=== PATIENT | male | born 1960 | race Two or more races ===

== ENCOUNTER 2024-10-07 15:10 | Outpatient (AMB) | payer OTHER, SELFPAY ==
--- NOTE | 2024-10-07 15:19 | A.OFFVIS_ITS ---
Intake Visit Reasons: elevated PSA Intake Note: Patient is present for ELEVATED PSA Urology Medication:NONE Antibiotic Allergy:NONE Blood Thinner:NONE [employer] Service Helper Required: No Allergies No Known Allergies Allergy (Verified 10/07/24 15:20) HPI Comments Details: Chance is a pleasant Serbian-speaking male. He is a patient of Dr. Castillo. He seen for the following urologic conditions - elevated PSA Accompanied by his sister Serbian translation provided in office by qualified medical specialist Trial finasteride for 4 months with repeat free and total PSA PCPT risk calculator indicates 8% probability of clinically significant prostate cancer Elevated PSA Slowly rising over a number of years PSA - 04/22 3.5, 05/24 4.7, 01/21 5.4, 09/22 6.0, 05/26 6.5 Per documentation MRI performed at [facility] Probable PI-RADS 3 - no description of prostate size Given uncertainty that would revolve around biopsy diagnosis and less than 10% probability of clinically significant prostate cancer recommend initiate finasteride to shrink prostate and modify PSA If PSA fails to respond to finasteride would recommend targeted MRI ultrasound fusion biopsy Review of Systems Const Denies chills and Denies fever(s) Card Reports no additional complaints and Denies syncope Resp Denies cough GI Denies abdominal pain and Denies heartburn Reports as per HPI and Denies change in libido Neuro Denies syncope Psych Denies change in libido Endo Denies change in libido Physical Exam Const General: cooperative, healthy appearing, comfortable and no acute distress Orientation/consciousness: patient oriented x3 HEENT Face and sinus: Yes normal facial exam Mouth: moist mucous membranes Neck Neck: Yes normal visual inspection, Yes full ROM and Yes trachea midline Chest Chest palpation & inspection: normal inspection of the chest Resp Effort & Inspection: normal respiratory effort, able to speak in complete sentences and no respiratory distress GI Inspection: Yes normal to inspection Back/Spine/Pelvis Cervical Spine: normal cervical lordosis Thoracic/Lumbar Spine: thoracic and lumbar spine normal to inspection Skin General skin exam: no rashes or lesions noted Neuro General: patient oriented x3, gait normal, tone normal and moves all extremities Extrem General: Yes normal to inspection and Yes capillary refill normal Results AMB Urinalysis, Automated UA Leukoctes 0 Az/uL Last Edit by FIDENCIO Gonzalez on 10/07/24 15:57 UA Nitrite Negative Last Edit by FIDENCIO Gonzalez on 10/07/24 15:57 UA Urobilinogen 0.2 mg/dL Last Edit by FIDENCIO Gonzalez on 10/07/24 15:5 7 UA Protein 15 mg/dL Last Edit by FIDENCIO Gonzalez on 10/07/24 15:57 UA pH 6.0 Last Edit by FIDENCIO Gonzalez on 10/07/24 15:57 UA Blood 0 Juarez/uL Last Edit by FIDENCIO Gonzalez on 10/07/24 15:57 UA Specific [place] 1.025 Last Edit by FIDENCIO Gonzalez on 10/07/24 15: 57 UA Ketone Negative Last Edit by FIDENCIO Gonzalez on 10/07/24 15:57 UA Bilirubin 0 mg/dL Last Edit by FIDENCIO Gonzalez on 10/07/24 15:57 UA Glucose 0 mg/dL Last Edit by FIDENCIO Gonzalez on 10/07/24 15:57 Assessment & Plan Assessment & Plan (1) Elevated PSA: Code(s): R97.20 - Elevated prostate specific antigen [PSA] Category: Medical Plan Trial finasteride Four month follow-up PSA Orders: Orders PSA,Total (Free>4and<10) 4 Months R97.20 - Elevated prostate specific antigen [PSA] AMB Urinalysis Automated Today Z13.9 - Encounter for screening, unspecified US bladder 4 Months R97.20 - Elevated prostate specific antigen [PSA] Medications: New finasteride 5 mg PO DAILY 90 tabs 1RF 90 days Patient Instructions: This note is constructed using voice recognition software. While every effort has been made to ensure accuracy mica laminating machine feeder errors may have been included. Imaging studies, laboratory and physical exam results were discussed and reviewed in detail. No major barriers to patient understanding were identified. An opportunity to ask questions regarding the treatment plan was provided. All questions were answered. The patient expressed understanding and agreement with the above treatment plan. The patient is aware they should contact our office by phone for worsening of their current condition or the appearance of new urologic symptoms. Compliance is encouraged with any medications and followup testing that is ordered. It is a privilege to participate in the urologic care of your patient. If you have any questions or concerns regarding treatment for the above conditions, or other urologic issues, please do not hesitate to contact me. The office telephone contact is [phone]. Sincerely, Dr Artur Nevarez MD, [facility] - Urology Compassionate Specialist Care for the Genitourinary System Coding Level of Care Code New Pt Level 4 (53962) Diagnoses Elevated PSA R97.20
--- OUTSIDE RECORDS SUMMARY | 2024-10-07 15:28 | XMS_ITS | Clinical Summary ---
Author Organization [address] Address [address] [place] [phone] Phone Care Team Providers Care End Worker Name Role Phone Demetrius Castillo MD Primary Care Provider [phone] Allergies No known active allergies Medications oxyCODONE (ROXICODONE) 5 mg immediate release tablet Take 1 tablet (5 mg total) by mouth every 6 (six) hours if needed for severe pain. Max Daily Amount: 20 mg 12 tablet Active Additional Information Patient not taking.Reported on 07/06/2024 acetaminophen (TYLENOL) 500 mg tablet Take 2 tablets (1,000 mg total) by mouth every 8 (eight) hours. 30 tablet Active Additional Information Patient not taking.Reported on 07/06/2024 Active Problems Problem Noted Date Diagnosed Date Unilateral inguinal hernia without obstruction o r gangrene 06/22/2024 Encounters Date Type Department Care Team Description 10/05/2024 11:00 AM EDT Office Visit General Surgery - [place] [address] [place] [address] Robbie Nunez MD History of robot-assisted repair of right inguinal hernia (Primary Dx) from Last 3 Months Surgical History Surgery Date Site/Laterality Comments OTHER SURGICAL HISTORY Left BULLET REMOVED IN P.R. FOREIGN BODY REMOVAL COLONOSCOPY Medical History Medical History Date Comments Shortness of breath Inguinal hernia Joint pain Social History Tobacco Use Types Packs/Day Years Used Date Smoking Tobacco: Some Days Cigarettes Smokeless Tobacco: Never Alcohol Use Standard Drinks/Week Comments Not Currently 0 (1 standard drink = 0.6 oz pur e alcohol) Interpersonal Safety Answer Date Record ed Physical Abuse 06/25/2024 Verbal Abuse 06/25/2024 Sex and Gender Information Value Date Recorded Sex Assigned at Male 06/25/2024 7:37 AM EDT Legal Sex Male 2:17 AM EST Gender Identity Male 06/25/2024 7:37 AM EDT Sexual Orientation Straight 06/25/2024 7: 37 AM EDT Obstetrics History Last Filed Vital Signs Vital Sign Reading Time Taken Comments Blood Pressure 142/81 10/05/2024 9:15 AM EDT Pulse 94 10/05/2024 9:15 AM EDT Temperature 37 C (98.6 F) 06/25/2024 1:40 PM EDT Respiratory Rate 16 06/25/2024 1:32 PM EDT Oxygen Saturation 97% 06/25/2024 1:32 PM EDT Inhaled Oxygen Concentration - - Weight 92.7 kg (204 lb 6.4 oz) 10/05/2024 9:15 A M EDT Height 172.7 cm (5' 8 ) 10/05/2024 9:15 AM EDT Body Mass Index 31.08 10/05/2024 9:15 AM EDT Plan of Treatment Health Maintenance Due Date Last Done Comments Cholesterol Screening (Lipid Panel) 03/04/2022 Colorectal Cancer Screening: Colonoscopy 03/04/2022 Depression Screening 03/04/2022 HIV Screening 03/04/2022 Hepatitis C Screening 03/04/2022 Medicare Annual Wellness Visit 03/04/2022 Social Influencers of Health Screening 03/04/2022 Pneumococcal Vaccine: 50+ Years (2 of 2 - PCV) 10/03/2022 10/03/2021 Zoster Vaccines (2 of 2) 07/05/2023 05/10/2023 COVID-19 Vaccine (3 - 2023-2 5 season) 2023 12/24/2020, 12/03/2020 Influenza Vaccine (#1) 2024 , 02/16/2022 DTaP,Tdap,and Td Vaccines (2 - Td or Tdap) 10/04/2031 10/03/2021 RSV Immunization Adult Patients (1 - 1-dose 75+ series) 2037 HIB Vaccines Aged Out No longer eligi ble based on patient's age to complete this topic HPV Vaccines Aged Out No longer eligi ble based on patient's age to complete this topic Hepatitis A Vaccines Aged Out No long er eligible based on patient's age to complete this topic Hepatitis B Vaccines Aged Out No long er eligible based on patient's age to complete this topic IPV Vaccines Aged Out No longer eligi ble based on patient's age to complete this topic MMR Vaccines Aged Out No longer eligi ble based on patient's age to complete this topic Meningococcal ACWY Vaccine Aged Out N o longer eligible based on patient's age to complete this topic Meningococcal B Vaccine Aged Out No l onger eligible based on patient's age to complete this topic RSV Immunization Patients Under 20 months Aged Out No longer eligible b ased on patient's age to complete this topic Varicella Vaccines Aged Out No longer eligible based on patient's age to complete this topic Medical Devices Implanted Type Area Return Agent Device Identifier Shelf Expiration Date Model / Serial / Lot Mesh 3dmax Lght Lg 4.1x6.2 R 4.1x6.2in - Sna - [id number] Implanted:Qty: 1 on 06/25/2024 by Robbie Nunez MD at [facility] Surgical Mesh Sling Implants Right: Inguinal CR BARD - [employer] DIV [id number] 12/27/2028 [id number] / NA / [id number] Additional Health Concerns Infection Onset Date Last Indicated Parainfluenza Virus 03/30/2024 03/30/2024 Insurance [place]ID [place] Member Subscriber Plan / Payer (Ef fective 2024-Present) Name:DELMAR QUINTERO Relation to Subscriber:Self Name:Delmar Quintero Payer ID:[id number] Group ID:Not on file Type:Not on file Address: [facility] ATTN:[employer] [address] [place] [address] [employer] MEDICARE Advance Directives * Full Code - Default (Latest Code Status on File) Date Activated Date Inactivated Comments 06/25/2024 8:01 AM 06/25/2024 4:52 PM This is orde r is used when code status has not been discussed with the patient, or code status is otherwise unknown/unconfirmed To update the patient's code status, place a code status order. Do not modify or discontinue any currently active code status orders. Care Teams End Worker Relationship Specialty Start Date End Date Demetrius Castillo MD 11 [facility] [place] PCP - General Internal Medicine 06/22/24
--- OUTSIDE RECORDS SUMMARY | 2024-10-07 15:28 | XMS_ITS | Data Portability ---
Author Organization [place] - [facility], Allergy Address [address] [address] Care Team Providers Care Software Test Technician Name Role Phone [facility] Primary Car e Provider Assessment Encounter Date Assessment Date Assessment LastModified by Organization Details LastModified Time 02/19/2024 02/19/2024 The left ear [email or web address] Not available 1 04/20/2023 15:56:01 Plan of Treatment Reminders Order Date Submit Date Provider Last Modified By Organization Details Last Modified Time Details Appointments None record ed. Lab None record ed. Referral None record ed. Procedures None record ed. Surgeries None record ed. Imaging None record ed. Medication Orders None record ed. Patient TargetsNo targets recorded. Patient InstructionsNo instructions recorded. Reason for Referral None Reported. Problems Name Problem SNOMED Code Status Onset Date Resolution Date Notes Provider Name and Address Organization Details Recorded Time Foreign body in left ear [id number] 0 Active 2023 CHERI REILLY MD [address], [phone], [place] - [facility] 4 15:56:09 Problem Notes None recorded. Procedures Surgical History Date Name Laterality Status Provider Name and Address Organization Details Recorded Time Removal of foreign body from ear canal completed CHERI REILLY MD [address] [place] [address], [phone], [facility] 02/19/2024 15:55:56 Imaging Results None recorded. Procedure Notes None recorded. Medical Equipment None Reported. Allergies No known drug allergies Medications Name Sig Start Date Stop Date Status Note LastModified by Organization Details LastModified Time ibuprofen 800 mg tablet 02/18 completed Not Available Not Available Not Available amoxicillin 875 mg tablet TAKE 1 TABLET BY MOUTH EVERY 12 HOURS FOR 7 DAYS 02/18 completed Not Available Not Available Not Available oseltamivir 75 mg capsule TAKE 1 CAPSULE BY MOUTH TWICE DAILY FOR 5 DAYS 02/18 completed Not Available Not Available Not Available azelastine 137 mcg (0.1 %) nasal spray USE 2 SPRAYS IN EACH NOSTRIL TWICE DAILY FOR 10 DAYS 02/18 completed Not Available Not Available Not Available Vitals None Recorded Social History Question Answer Notes LastModified by [employer] Details LastModified Time Tobacco Smoking Status Current Every Day Smoker Bonnie oneill [place] - [facility] 02/19/2024 15:39:18 Which Illicit Or Recreational Drugs Have You Used? Marijuana [email or web address] Information not available 02/19/2024 Sex: Unknown Functional Status Question Answer Note LastModified by Organizat HowDo Details LastModified Time Do you use any illicit or recreational drugs? Yes [email or web address] Information not available 02/19/2024 Mental Status None recorded. Family History Nothing Reported. Medical History No medical history recorded. Past Encounters Encounter ID Performer Location Encounter Start Date Encounter Closed Date Diagnosis/Indication Diagnosis SNOMED-CT Code Diagnosis ICD10 Code Diagnosis Note [id number] CHERI REILLY MD [facility] [address] [phone] 02/19/2024 15:24:52 02/19/2024 16:01:14 Foreign body in left ear [id number] T16.2XXA Left ear was occluded by a deeply impacted cottonball which was able to remove today under the binocular microscope . No signs of acute or chronic inflammati on. Tympanic membrane and middle ear space appear normal. Patient noted immediate improvemen t of his hearing and resolution of the blockage sensation. Patient did not want to proceed with further audiometri c testing due to resolution of symptoms. Physical examinatio n revealed signs of excessive Q-tip use today. Today we spent some time talking about the fact that cerumen is a natural antibiotic , antifungal , waterproof er, and moisturize r of the delicate external auditory canal skin. The use of Q-tips strips away this natural protection and makes the ear canal skin more likely to become itchy, irritated or become infected. There is also the risk of trauma to the tympanic membranes as well. We discussed proper aural hygiene techniques to maintain the health of the external ears. Patient may follow-up as needed Health Concerns Section Related Observation LastModified by Organization Detai ls LastModified Time None Recorded Concern Status LastModified by Organization Details LastModified Time None Recorded Advance Directives Directive None Recorded Payers Insurance Date Sequence Insurance Name Policy Number Policy Vo Covered Member ID Vo Member ID Guarantor Name 02/19/2024 1 [facility] (MEDICARE REPLACEMENT/A DVANTAGE - HMO) [facility] Chance Valles [id number] Chance Valles 02/19/2024 2 [place] [facility] Chance Valles [id number] Chance Valles Notes Date Note Type Note Provider Name and Address Organization Details Recorded Time 02/19/2024 text/html 63-year-old male who presented to his primary care physician about 1 month ago with left-sided ear blockage. He was noted to have obstruction of the left ear canal. Attempts at flushing were unsuccessful. He tried flushing the ear at home without success. He continues to have left-sided ear blockage without pain, bleeding or discharge. Today's visit carried out using cataloging assistant. Patient uses Q-tips on a regular basis. CHERI REILLY MD [address] [place] [address], [phone], [facility] - [facility] 02/19/2024 15:57:26
== END 2024-10-07 16:02 | disposition home or self-care (01) ==
LOC: HO.HUSH 15:11
PROVIDERS: PCP Internal Medicine; Visit Provider Urology
DX: Z13.9 Encounter for screening, unspecified (principal); R97.20 Elevated prostate specific antigen [PSA]
CPT/HCPCS: 99204

== ENCOUNTER → 2024-10-07 15:10 | Outpatient (BNVA) | payer OTHER, SELFPAY | PROVIDERS: PCP Internal Medicine; Visit Provider Urology | DX: R97.20 Elevated prostate specific antigen [PSA] (principal) | CPT/HCPCS: 81003 ==

== ENCOUNTER 2025-02-08 08:12 | Outpatient (REF) | payer OTHER, SELFPAY ==
--- OUTSIDE RECORDS SUMMARY | 2024-09-15 11:20 | XMS_ITS ---
Author Organization [facility] Address [address] [place] [phone] Care Team Providers Care Drum Puller Name Role Phone Demetrius Castillo Primary Care [...] Encounters Encounter Location Date Provider Diagnosis [facility] [address] [place] [address] [facility] [place] [phone] 09/15/2024 Demetrius Castillo Plan Of Treatment Next Appt Details Provider Name:Adryan [facility], 02/16/2025 10:30:00 AM, [address] [place] [address], [phone], Provider Name:Demetrius Castillo, 08/03/2025 02:20:00 PM, [address] [place] [address], [phone], Progress Notes * Steven QUINTEROOB:1960 ( 64 yo M)Acc No.[id number]:09/15/2024 Progress Notes Patient: Chance MORSE Provider: Nayla Castillo MD :1960 A ge:64 Y S ex:Male Date:09/15/2024 Address:[address] [place] [address], [place] [address] Subjective: * Chief Complaints: * 1 . [...] Electronic signature of Andgladys Castillo MD on 02/08/2025 at 08:36 AM EST Sign off status: Pending * Provider: Nayla Castillo MD Date: 0 09/15/2024 Generated for Harriet howell/Ulises/eTraizasmitting on: 1 04/10/2024 08:36 AM EST
--- OUTSIDE RECORDS SUMMARY | 2024-12-12 16:00 | XMS_ITS ---
Author Organization [facility] Address [address] [place] [phone] Care Team Providers Care Historical Society Director Name Role Phone Jonathan Demetrius Primary Care [...] review and pick correct strength-formulat ion from CDP options. If intended option is not shown, discontinue and re-order from Quick Search* 05/11/2023 Not-Taking Finasteride 5 MG 1 tab(s) orally once a day Active Azelastine HCl 137 MCG/SPRAY 2 spray(s) intranasally 2 times a day for 10 days Not-Taking Social History Sex Assigned At : Social History Observation Description Sex Assigned At Male Encounters Encounter Location Date Provider Diagnosis [address] [address] 12/12/2024 Provider Migration Plan Of Treatment Next Appt Details Provider Name:[facility], 02/16/2025 10:30:00 AM, [address] [place] [address], [phone], Provider Name:Demetrius Castillo, 08/03/2025 02:20:00 PM, [address] [place] [address], [phone], Progress Notes * Steven QUINTEROOB:1960 ( 64 yo M)Acc No.[id number]:12/12/2024 Patient: Chance MORSE Provider: :1960 A ge:64 Y S ex:Male Date:12/12/2024 Address:[address] [place] [address] Pcp:Demetrius Castillo Subjective: * Chief Complaints: * [...] *Please review and pick correct strength-formulation from [facility] options. If intended option is not shown, discontinue and re-order from Quick Search*, Not-Taking/PRN Azelastine HCl 137 MCG/SPRAY Solution 2 spray(s) intranasally 2 times a day Objective: * Vitals: Assessment: Plan: * Treatment: * Images: Billing Information: * Visit Code: * Procedure Codes: * Electronic signature of Prov ider Migration on 02/08/2025 at 08:35 AM EST Sign off status: Pending * Provider: Date: 0 12/12/2024 Generated for Harriet howell/Ulises/Lyubov on: 04/10/2024 08:35 AM EST
--- OUTSIDE RECORDS SUMMARY | 2025-01-15 09:30 | XMS_ITS ---
Author Organization [facility] Address [address] [place] [phone] Care Team Providers Care Sky Cap Name Role Phone Demetrius Castillo Primary Care Provider [phone] [facility] Erica Unavailable [phone] REASON FOR VISIT Office; Received a bill from a office Social History Sex Assigned At : Social History Observation Description Sex Assigned At Male Encounters Encounter Location Date Provider Diagnosis [address] [address] 01/15/2025 [facility] Plan Of Treatment Next Appt Details Provider Name:[facility], 02/16/2025 10:30:00 AM, [address] [place] [address], [phone], Provider Name:Demetrius Castillo, 08/03/2025 02:20:00 PM, [address] [place] [address], [phone], Progress Notes * Steven QUINTEROOB:1960 ( 64 yo M)Acc No.[id number]:01/15/2025 Patient: Amelia Chance LARIOS Provider: Jermaine HORTON [facility] :1960 A ge:64 Y S ex:Male Date:01/15/2025 Address:[address] [place] [address] Pcp:Demetrius Castillo Subjective: * Chief Complaints: * 1 . Office; Received a bill from a office. * Medical History: Objective: Assessment: Plan: * Images: Billing Information: Care Plan Details* * Electronic signature of [facility] on 02/08/2025 at 08:35 AM EST Sign off status: Pending * Provider: Jermaine HORTON [facility] Date: 1 Generated for Harriet howell/Ulises/Lyubov on: 04/10/2024 08:35 AM EST
--- OUTSIDE RECORDS SUMMARY | 2025-02-08 08:36 | XMS_ITS | Encounter Summary ---
Author Organization [facility] Address [address] [place] [address] Care Team Providers Care Corporate Affairs Manager Name Role Phone Demetrius Castillo MD Primary Care Provider [phone] Encounter Details Date Type Department Care Team (Late st Contact Info) Description 05/08/2024 Lab Requisition [facility] [address] [facility] [place] [address] Demetrius Castillo MD [address] [place] [address] Elevated prostate specific antigen (PSA) Social History Tobacco Use Types Packs/Day Years Used Date Smoking Tobacco: Never Assessed Sex and Gender Information Value Date Recorded Sex Assigned at Male 06/25/2024 7:37 AM EDT Legal Sex Male 2:17 AM EST Gender Identity Male 06/25/2024 7:37 AM EDT Sexual Orientation Straight 06/25/2024 7: 37 AM EDT documented as of this encounter Plan of Treatment Not on file documented as of this encounter Procedures Procedure Name Priority Date/Time Associated Diagnosis Comments PROSTATE SPECIFIC ANTIGEN DIAGNOSTIC Routine 05/08/2024 10:32 AM EST Elevated prostate specific antigen (PSA) documented in this encounter Results * (ABNORMAL) Prostate specific antigen diagnostic (05/08/2024 10:32 AM EST) PSA 6.45(H) 0.00 - 4.00 ng/mL LAB CHEMISTRY METHOD 05/08/2024 5:13 PM EST [facility] ([facility] Blood Venous blood specimen / Unknown 05/08/2024 10:32 AM EST 05/08/2024 4:46 PM EST Narrative [facility] ([facility] - 05/08/2024 5:13 PM EST The Siemens Advia Centaur Chemiluminescent Immunoassay is used. Results obtained with different assay methods or kits cannot be used interchangeably. Results cannot be interpreted as absolute evidence of the presence or absence of malignant disease. us Demetrius Castillo MD LAB BLOOD ORDERABLES Final Re sult [facility] [address] [place] [address], documented in this encounter Visit Diagnoses Diagnosis Elevated prostate specific antigen (PSA) documented in this encounter Additional Health Concerns Infection Onset Date Last Indicated Resolved Time Parainfluenza Virus 03/30/2024 03/30/2024 documented as of this encounter Care Teams Corporate Affairs Manager Relationship Specialty Start Date End Date Demetrius Castillo MD [address] [place] [address] PCP - General Internal Medicine 06/22/24 documented as of this encounter
--- OUTSIDE RECORDS SUMMARY | 2025-02-08 08:36 | XMS_ITS | Patient Health Record ---
Author Organization [facility] Address [address] [place] [address] Care Team Providers Care Order Caller Name Role Phone Demetrius Castillo Primary Care Provider Dainelle Field Unavailable [phone] HindsJoaquínJosie Unavailable [phone] [facility], [facility] Unavailable [phone] Conchis Sánchez Unavailable [phone] Migration, Provider Unavailable Unavailable Allergies No Known Allergies Results Component Value Reference Range Notes Rapid Strep OSOM A Reviewed date:03/30/2024 10:21:06 AM Interpretation:Negative Performing Lab: Notes/Report: Negative COVID-19 Reviewed date:03/30/2024 10:21:58 AM Interpretation:Negative Performing Lab: Notes/Report: Negative RESP SYNCYTIAL VIRUS (RSV) P CR Reviewed date:03/30/2024 10:23:30 AM Interpretation:Negative Performing Lab: Notes/Report: Negative INFLUENZA A/B Reviewed date:03/30/2024 10:24:11 AM Interpretation:Negative Performing Lab: Notes/Report: Negative RESPIRATORY VIRUS PANEL [facility] ST[facility] Reviewed date:04/03/2024 11:40:26 AM Interpretation:Parainfluenza Performing Lab: Notes/Report: Testing was performed using the Axeda Respiratory Pathogen PCR Assay. All results must be correlated with the clinical findings. Results should not be used as the sole basis for diagnosis. False Negative results may occur from the presence of sequence variants in the region targeted by the assay or the presence of inhibitors. Results may be affected by concurrent antiviral/antimicrobial therapy or levels of organisms that are below the limit of detection. Adenovirus Detection by PCR Not Detected Not Detected Influenza A PCR Not Detected Not Detected Influenza B PCR Not Detected Not Detected Coronavirus 229E Not Detected Not Detected Coronavirus HKU1 Not Detected Not Detected Coronavirus OC43 Not Detected Not Detected Coronavirus NL63 Not Detected Not Detected Parainfluenza Virus 1 Not Detected Not Detected Parainfluenza Virus 2 Not Detected Not Detected Parainfluenza Virus 3 Not Detected Not Detected Parainfluenza Virus 4 Detected Not Detected RSV PCR Not Detected Not Detected Human Metapneumovirus A and B Not Detected Not Detecte d Rhinovirus/Enterovirus Not Detected Not Detected Bordetella pertussis Not Detected Not Detected Bordetella parapertussis Not Detected Not Detected Mycoplasma pneumo by PCR Not Detected Not Detected Chlamydia pneumoniae Not Detected Not Detected SARS COV-2 Not Detected Not Detected MR Pelvis W WO Reviewed date:2024 02:14:58 PM Interpretation:Abnormal Performing Lab: Notes/Report: Abnormal PROSTATE SPECIFIC ANTIGEN DI AGNOSTIC Reviewed date:05/10/2024 11:56:12 AM Interpretation:6.45 Performing Lab: Notes/Report: The Siemens Advia Centaur Chemiluminescent Immunoassay is used. Results obtained with different assay methods or kits cannot be used interchangeably. Results cannot be interpreted as absolute evidence of the presence or absence of malignant disease. PSA 6.45 0.00-4.00 ng/mL Reason For Referral Reason Unusual looking spac e occupying lesion in left ear canal causing blocked feeling and noit responding to drops and flush; [facility] will call him [facility] Referral Organization [facility] Referring Provider First Name Demetrius Referring Provider Last Name Jonathan Referring Provider Speciality Internal M edicine Referred Provider [facility] Referred Provider Specialty Otology, Lar yngology, Rhinology General Notes Silvia Zaldivar 11:39:52 AM >Notes faxed to [phone] Katelyn 02/19/2024 04:07:04 PM > pt seen today note obtained and put into providers folder to be reviewed Referral Priority Routine Referral Appointment Date 02/19/2024 Reason [facility], [address] [facility] [address] P: [phone] F: [phone] right inguinal hernia - grapefruit size Diagnosis 1 Unilateral inguinal hernia, without obstruction or gangrene, not specified as recurrent (K40.90) Referral Organization [facility] Referring Provider First Name Demetrius Referring Provider Last Name Jonathan Referring Provider Speciality Internal M edicine Referred Provider Specialty Surgery General Notes Lucrecia Blackman 03:39:49 PM > Faxed to general surgery, Lucrecia Blackman 07/28/2024 10:13:34 AM > pt. attended, notes to scan Referral Priority Routine Referral Appointment Date 06/25/2024 Reason [facility] Urology, [address], [place] P: [phone] F: [phone] Abnormal prostate MRI in gentleman with gradually increasing PSA See note Referral Organization [facility] Referring Provider First Name Demetrius Referring Provider Last Name Jonathan Referring Provider Speciality Internal edicine Referred Organization [facility] Referred Provider Raul Stern [facility] er, Urology Services Referred Address [address] [facility],[place],[address],[place] Referred Provider Specialty Urology General Notes Lucrecia Blackman 01/2025 08:43:34 AM > Faxed to [facility] 09/10/2024 03:51:40 PM >Note from [facility]- Unable to schedule as he has been d/c'd from practice.Jonathan Andrew 09/10/2024 09:59:50 PM >any other inplan otpions?, Lucrecia Blackman 09/16/2024 08:48:15 AM > faxed new referral option to [facility], Lucrecia Blackman 10/27/2024 08:32:30 AM > Scheduled 02/05/25 @3:45 pm - He needs bladder ultrasound prior to appt and PSA total, 2 weeks prior to appt, Lucrecia Blackman 10/27/2024 02:53:34 PM > pt. was actually seen on 10/07/24 requested note Referral Priority Routine Referral Appointment Date 10/07/2024 Reason He has dental issues but may be low priority during our shartae. If so, can you provide him with community dental resources? Referral Organization [facility] Referring Provider First Name Demetrius Referring Provider Last Name Jonathan Referring Provider Speciality Internal edicine Referred Provider Specialty [facility] Referral Priority Routine Medications Medication SIG (Take, Route, Frequency, Duration) Notes Start Date End Date Status Finasteride 5 MG 1 tab(s) orally once a day Active Ketotifen Fumarate 0.025% 1 GTT IN EACH AFFECTED EYE EVERY 8 HOURS for 10 DAY(S) *Please review and pick correct strength-formulat ion from [email or web address] options. If intended option is not shown, discontinue and re-order from Quick Search* 05/11/2023 Not-Taking Azelastine HCl 137 MCG/SPRAY 2 spray(s) intranasally 2 times a day for 10 days Not-Taking Clotrimazole 1 % 1 singh applied topically 2 times a day for 14 days 11/02/2023 Not-Taking Immunizations Vaccine Route Administration Date Status Comme nts Pfizer-[employer] Covid-19 Vaccine Administration - First Dose (Single Dose 30MCG/0.3ML 1ST) Unknown 12/03/2020 Administered Pfizer-[employer] Covid-19 Vaccine Administration-Secon d Dose (Single Dose 30MCG/0.3ML 2ND) Unknown 12/24/2020 Administered Tdap IM Intramuscular 10/03/2021 Administered ND 49 [id number] PPSV 23 IM Intramuscular 10/03/2021 Administered NDC 00 [id number] Influenza IM Intramuscular 02/16/2022 Administered Shingrix (Zoster) Unknown 05/10/2023 Administered Influenza IM Intramuscular 03/06/2024 Administered [facility] [id number] Social History Tobacco Use: Social History Observation Description Date Details (start date - stop date) Current Smoker NA - NA Sex Assigned At : Social History Observation Description Sex Assigned At Male Tobacco Use Assessment MU Question Answer Notes What is your current smoking status? current smoker smokes black n milds cigars How often do you smoke? some days, but not every day How many cigarettes a day do you smoke? 5 or less How soon after you wake up d o you smoke your first cigarette? after 60 minutes Patient counseled on the dangers of tobacco use and advised to quit: 05/10/2023 Problems Problem Type SNOMED Code ICD Code Onset Dates Problem Status W/U Status Risk Notes Problem Overweight (561812254) Overweight (E66.3) Active confirmed Problem Mild recurrent major depression (99606089) Major depressive disorder, recurrent, mild (F33.0) Active confirmed Problem Recurrent major depression (04967044) Major depressive disorder, recurrent, in remission, unspecified (F33.40) Active confirmed Problem Essential hypertension (72783107) Essential (primary) hypertension (I10) Active confirmed Problem 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 (1508028061630179 ) 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 (K02.51) Active confirmed Problem Inguinal hernia (400857421) Unilateral inguinal hernia, without obstruction or gangrene, not specified as recurrent (K40.90) Active confirmed Problem Pain of left hip joint (finding) (955783756000242) Pain in left hip (M25.552) Active confirmed Problem Degeneration of lumbar intervertebral disc (98141133) Other intervertebral disc degeneration, lumbar region (M51.36) Active confirmed Problem Low back pain (912684208) Low back pain (M54.5) Active confirmed Problem Vaccine refused by patient (620238942203) Immunization not carried out because of patient decision for unspecified reason (Z28.20) Active confirmed Problem Tobacco use (027494086) Tobacco use (Z72.0) Active confirmed Problem Elevated PSA (831599946) Elevated prostate specific antigen [PSA] (R97.20) Active confirmed Problem Body mass index 30.00 to 34.99 (133630578237371) Body mass index [BMI] 32.0-32.9, adult (Z68.32) Active confirmed Problem Sheltered homelessness (522954546172479) Sheltered homelessness (Z59.01) Active confirmed Problem BMI 25-29 - overweight (584153220) Body mass index (BMI) 29.0-29.9, adult (Z68.29) Inactive confirmed Problem Body mass index 30+ - obesity (486720067) Body mass index (BMI) 30.0-30.9, adult (Z68.30) Inactive confirmed Problem Body mass index 30+ - obesity (736910339) Body mass index [BMI] 30.0-30.9, adult (Z68.30) Inactive confirmed Vital Signs Temperature 97.2 degrees Fahrenheit 02/02/2025 Blood pressure diastolic 86 02/02/2025 Oximetry 100 02/02/2025 Height 68 in 02/02/2025 Blood pressure systolic 139 02/02/2025 Weight 198.6 lbs 02/02/2025 BMI 30.19 kg/m2 02/02/2025 Encounters Encounter Location Date Provider Diagnosis [address] [address] 12/12/2024 Provider Migration [address] [address] 01/15/[address] [facility] [address] [address] 02/14/2024 Demetrius Castillo Encounter for screening for COVID-19 Z11.52 and 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 D23.[address] [address] 03/06/2024 Demetrius Castillo Low back pain M54.5 ; Other intervertebral disc degeneration, lumbar region M51.36 ; Encounter for screening for COVID-19 Z11.52 ; Encounter for immunization Z23 ; Tinea pedis B35.3 ; Tobacco use Z72.0 ; Major depressive disorder, recurrent, in remission, unspecified F33.40 ; Elevated prostate specific antigen [PSA] R97.20 and Essential (primary) hypertension I10 [facility] [address] [address] 03/18/2024 Danielleyono Field [address] [address] 03/30/2024 Eddieliza Casionan Acute cough R05.1 and Essential (primary) hypertension I10 [address] [address] 04/21/2024 Demetrius Castillo Encounter for screening for COVID-19 Z11.52 ; Unilateral inguinal hernia, without obstruction or gangrene, not specified as recurrent K40.90 and Tobacco use Z72.[address] [address] 05/08/2024 Demetrius Castillo Encounter for screening for COVID-19 Z11.52 ; Essential (primary) hypertension I10 ; Overweight E66.3 ; Elevated prostate specific antigen [PSA] R97.20 ; Major depressive disorder, recurrent, in remission, unspecified F33.40 ; Body mass index [BMI] 32.0-32.9, adult Z68.32 ; Unilateral inguinal hernia, without obstruction or gangrene, not specified as recurrent K40.90 and Acute nasopharyngitis [common cold] J00 [address] [address] 07/28/2024 Demetrius Castillo Encounter for screening for COVID-19 Z11.52 ; Unilateral inguinal hernia, without obstruction or gangrene, not specified as recurrent K40.90 ; Elevated prostate specific antigen [PSA] R97.20 ; Overweight E66.3 ; Body mass index [BMI] 32.0-32.9, adult Z68.32 ; Essential (primary) hypertension I10 ; Major depressive disorder, recurrent, mild F33.0 ; Tobacco use Z72.0 and Low back pain M54.[address] [address] 08/20/2024 Josie Hinds [facility] [address] [place] [address] [facility] [place] [phone] 2024 Demetrius Castillo Elevated prostate specific antigen [PSA] R97.[address] [address] 10/27/2024 Demetrius Castillo Encounter for screening for COVID-19 Z11.52 ; Elevated prostate specific antigen [PSA] R97.20 ; Essential (primary) hypertension I10 ; Overweight E66.3 and Tobacco use Z72.[address] [address] 02/02/2025 Demetrius Castillo Encounter for screening for COVID-19 Z11.52 ; Low back pain M54.5 ; Encounter for screening for malignant neoplasm of colon Z12.11 ; 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 K02.51 ; Major depressive disorder, recurrent, mild F33.0 ; Sheltered homelessness Z59.01 ; Elevated prostate specific antigen [PSA] R97.20 ; Essential (primary) hypertension I10 and Tobacco use Z72.0 [facility] [address] [place] [phone] 06/16/2024 Danielle Field [address] [address] 02/20/2024 Demetrius Castillo [facility] [address] [place] [phone] 04/06/2024 Demetrius Castillo Acute cough R05.1 [facility] [address] [place] [phone] 04/17/2024 Demetrius Castillo [facility] [address] [place] [phone] 05/13/2024 Demetrius Castillo [address] [address] 06/25/2024 Demetrius Castillo [address] [address] 07/29/2024 Demetrius Castillo [address] [address] 08/20/2024 Demetrius Castillo [address] [address] 09/08/2024 Demetrius Castillo [address] [address] 09/15/2024 Demetrius Castillo [address] [address] 12/16/2024 Demetrius Castillo Assessments Encounter Date Diagnosis (ICD Code) Assessment Notes Treatment Notes Treatment Clinical Notes Section Notes 02/14/2024 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 Looks more like tissue than cerumen. I chose not to try to dig it out. [facility] and [facility] will contact himearly next week for appt. He is satisfied withthe plan 02/14/2024 Encounter for screening for COVID-19 (ICD-10 - Z11.52) Covid screening is negative. Discussed in detail with patient how to practice social distancing by avoiding public spaces and crowds now, wearing a mask in public to keep nose and mouth covered, and washing hands frequently especially before eating and after using the bathroom. Return to clinic if you develop any symtpoms of concern to be rescreened or go to the emergency room if you are having concerning symptoms for COVID-19. 03/06/2024 Other intervertebral disc degeneration, lumbar region (ICD-10 - M51.36) Evidence of DDD woith internittent symptoms. I do not think formal PT necessary right now but instructed him on pelvic tilsts; partial sit up and buttoick stertching-aske d him to do all of these bid at [facility] 03/06/2024 Low back pain (ICD-10 - M54.5) HE is OK with home PT routine 03/30/2024 Essential (primary) hypertension (ICD-10 - I10) BP is elevated today. He is however anxious and angry. Agrees to come back in a week for a BP check 03/30/2024 Acute cough (ICD-10 - R05.1) Offered our stock of guaifenesin/DM tabs but he declines. He would prefer syrup. After he left, our system is down for e-Rx. Will try to resend in the afternoon or he can come for a written script His symptoms are more than a week. He declines to be started on antibiotics for possible bronchitis of CAP Agrees to drink more fluids, sleep more and eat better Advised to go to the ED or RTO for new dyspnea or worse symptoms 04/21/2024 Unilateral inguinal hernia, without obstruction or gangrene, not specified as recurrent (ICD-10 - K40.90) good sized, reducble right inguinal hernia-refer to surgery. reviewed signs and sx of incarcerations. MAY also have smal one on left 04/21/2024 Encounter for screening for COVID-19 (ICD-10 - Z11.52) Covid screening is negative. Discussed in detail with patient how to practice social distancing by avoiding public spaces and crowds now, wearing a mask in public to keep nose and mouth covered, and washing hands frequently especially before eating and after using the bathroom. Return to clinic if you develop any symtpoms of concern to be rescreened or go to the emergency room if you are having concerning symptoms for COVID-19. 05/08/2024 Essential (primary) hypertension (ICD-10 - I10) BP control good-no change in loree 05/08/2024 Encounter for screening for COVID-19 (ICD-10 - Z11.52) Covid screening is negative. Discussed in detail with patient how to practice social distancing by avoiding public spaces and crowds now, wearing a mask in public to keep nose and mouth covered, and washing hands frequently especially before eating and after using the bathroom. Return to clinic if you develop any symtpoms of concern to be rescreened or go to the emergency room if you are having concerning symptoms for COVID-19. 07/28/2024 Unilateral inguinal hernia, without obstruction or gangrene, not specified as recurrent (ICD-10 - K40.90) i told him i am niot familiar with what hernia area should look like right now. I contacted [place] surgeeon[place] and lan get back to me whe he returns. His last office note says things are goign well. 07/28/2024 Encounter for screening for COVID-19 (ICD-10 - Z11.52) Covid screening is negative. Discussed in detail with patient how to practice social distancing by avoiding public spaces and crowds now, wearing a mask in public to keep nose and mouth covered, and washing hands frequently especially before eating and after using the bathroom. Return to clinic if you develop any symtpoms of concern to be rescreened or go to the emergency room if you are having concerning symptoms for COVID-19. 2024 Elevated prostate specific antigen [PSA] (ICD-10 - R97.20) I reviewed the MRI at [facility]. He has level 3 change in one area and should get urologis assessment. I had cointTorri queen earlier today and he lan review the MRI and advise. patient is OK waiitng a few days. Sx load nil FH negative he remioans wary of biopsy 10/27/2024 Elevated prostate specific antigen [PSA] (ICD-10 - R97.20) Revewoied urology input woith him He is aware of f/u plan 10/27/2024 Encounter for screening for COVID-19 (ICD-10 - Z11.52) Covid screening is negative. Discussed in detail with patient how to practice social distancing by avoiding public spaces and crowds now, wearing a mask in public to keep nose and mouth covered, and washing hands frequently especially before eating and after using the bathroom. Return to clinic if you develop any symtpoms of concern to be rescreened or go to the emergency room if you are having concerning symptoms for COVID-19. 02/02/2025 Low back pain (ICD-10 - M54.5) His back mobility is improved today. Keep walking; and he buys his oewn Tylenol for HS use 02/02/2025 Encounter for screening for COVID-19 (ICD-10 - Z11.52) Covid screening is negative. Discussed in detail with patient how to practice social distancing by avoiding public spaces and crowds now, wearing a mask in public to keep nose and mouth covered, and washing hands frequently especially before eating and after using the bathroom. Return to clinic if you develop any symtpoms of concern to be rescreened or go to the emergency room if you are having concerning symptoms for COVID-19. 04/06/2024 Acute cough (ICD-10 - R05.1) 03/06/2024 Encounter for screening for COVID-19 (ICD-10 - Z11.52) Covid screening is negative. Discussed in detail with patient how to practice social distancing by avoiding public spaces and crowds now, wearing a mask in public to keep nose and mouth covered, and washing hands frequently especially before eating and after using the bathroom. Return to clinic if you develop any symtpoms of concern to be rescreened or go to the emergency room if you are having concerning symptoms for COVID-19. 04/21/2024 Tobacco use (ICD-10 - Z72.0) encouraged reduction-down to very little 05/08/2024 Overweight (ICD-10 - E66.3) He is making good diet changes. Hope for more activity as wethare changes and hernia gets taken care of 07/28/2024 Elevated prostate specific antigen [PSA] (ICD-10 - R97.20) I think we nee dto get MRI and finish out process. PSA now over 6 10/27/2024 Essential (primary) hypertension (ICD-10 - I10) BP remains biorderline and does not desire meds. Work on salt intake 02/02/2025 Encounter for screening for malignant neoplasm of colon (ICD-10 - Z12.11) Agrees to FIT 03/06/2024 Encounter for immunization (ICD-10 - Z23) flu vax today 05/08/2024 Elevated prostate specific antigen [PSA] (ICD-10 - R97.20) He is reluctant to go to urology and wnats to get hernia done fiorat. We agreed to q 6 mmontsh pSA and I told him that if it goe sup I will work to <MRI first. He does not want to go back to previous practice It was dirty 07/28/2024 Overweight (ICD-10 - E66.3) he is active and eating better-hapoy with his genmeral progress 10/27/2024 Overweight (ICD-10 - E66.3) Stable-asked hi to start moving 02/02/2025 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 (ICD-10 - K02.51) needs dental resource-see referral 03/06/2024 Tinea pedis (ICD-10 - B35.3) he is not interested innail rx. Will go clotrimazole 2 weks on, 2 weeks off next 05/08/2024 Major depressive disorder, recurrent, in remission, unspecified (ICD-10 - F33.40) Improved! PHQ=3 07/28/2024 Body mass index [BMI] 32.0-32.9, adult (ICD-10 - Z68.32) 10/27/2024 Tobacco use (ICD-10 - Z72.0) stucj at 5 and not changing right now 02/02/2025 Major depressive disorder, recurrent, mild (ICD-10 - F33.0) Much improved with socialm support. Does not need meds 03/06/2024 Tobacco use (ICD-10 - Z72.0) cutting back! 05/08/2024 Body mass index [BMI] 32.0-32.9, adult (ICD-10 - Z68.32) now 31.99! ., Becomes an issue with his hernia 07/28/2024 Essential (primary) hypertension (ICD-10 - I10) BP reasonable on no meds-will follow (boirderline pre-HYTN) 02/02/2025 Sheltered homelessness (ICD-10 - Z59.01) Still program home on Prospecyt and ahppy with his progress 03/06/2024 Major depressive disorder, recurrent, in remission, unspecified (ICD-10 - F33.40) in remission.Enjoy s faily-suport offered 05/08/2024 Unilateral inguinal hernia, without obstruction or gangrene, not specified as recurrent (ICD-10 - K40.90) as nloted. He is now booked to see surgeon in [place] March[place] 07/28/2024 Major depressive disorder, recurrent, mild (ICD-10 - F33.0) Much improved! 02/02/2025 Elevated prostate specific antigen [PSA] (ICD-10 - R97.20) We revewied the urology note. Low risk signicficant cancer and they opted fro Proscar and close f/u. Sees him in 3 days 03/06/2024 Elevated prostate specific antigen [PSA] (ICD-10 - R97.20) He reallly has reisted urology b/o risk of bx needed. We agreed to every 6-9 month POSA and symptom monitoring. If goes up more then I will tryot get pelvic MRI 05/08/2024 Acute nasopharyngitis [common cold] (ICD-10 - J00) mild and improviong-foll ow 07/28/2024 Tobacco use (ICD-10 - Z72.0) Much decreased 02/02/2025 Essential (primary) hypertension (ICD-10 - I10) Continues risk or atage 1 but does not want meds. Asked him to keep moving and watch the salt 03/06/2024 Essential (primary) hypertension (ICD-10 - I10) BP aduequte-monito r 07/28/2024 Low back pain (ICD-10 - M54.5) Improved with walking and stretching. Support 02/02/2025 Tobacco use (ICD-10 - Z72.0) He is very happy wioththe reduction in smoking to 2 a week.,Support 02/14/2024 Other 03/06/2024 Other 04/21/2024 Other 05/08/2024 Other 07/28/2024 Other 2024 Other 14 minute call 10/27/2024 Other 02/02/2025 Other Plans to come back for flu vax 1-2 weeks Plan Of Treatment Pending Test Test Name Order Date FECAL GLOBIN BY IMMUNOCHEMISTRY 02/03/20 25 FECAL GLOBIN BY IMMUNOCHEM. (MEDICARE) 1 04/18/2021 Next Appt Details Provider Name:Adryan CALLAHAN, 02/16/2025 10:30:00 AM, [address] [place] [address], [phone], Provider Name:Demetrius Castillo, 08/03/2025 02:20:00 PM, [address] [place] [address], [id number], Insurance Providers Payer Name Payer Address Payer Phone Subscriber Number Group Number Insured Name Patient Relationship to Insured Coverage Start Date Coverage End Date [facility] [address] [place] [address] [phone] [id number] Chance Valles Self - patient is the insured 4 [place]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
--- OUTSIDE RECORDS SUMMARY | 2025-02-08 08:36 | XMS_ITS | Encounter Summary ---
Author Organization [facility] Address [address] [place] [address] Care Team Providers Care Linux Vmware Administrator Name Role Phone Demetrius Castillo MD Primary Care Provider [phone] Encounter Details Date Type Department Care Team (Late st Contact Info) Description 03/30/2024 Lab Requisition [facility] - Main Lab [address] [facility] [place] [address] Conchis Sánchez, HUY [address] [place] [address] Acute cough Social History Tobacco Use Types Packs/Day Years [...] Procedure Name Priority Date/Time Associated Diagnosis Comments RESPIRATORY VIRUS PANEL MOLECULAR STUDY Routine 03/30/2024 10:19 AM EST Acute cough documented in this encounter Results * (ABNORMAL) Respiratory virus panel molecular study (03/30/2024 10:19 AM EST) Adenovirus Detection by PCR Not Detected Not Detected LAB MICROBIOLOGY METHOD 03/30/2024 5:52 PM EST [facility] Influenza A PCR Not Detected Not Detected LAB MICROBIOLOGY METHOD 03/30/2024 5:52 PM EST [facility] Influenza B PCR Not Detected Not Detected LAB MICROBIOLOGY METHOD 03/30/2024 5:52 PM [facility] Coronavirus 229E Not Detected Not Detected LAB MICROBIOLOGY METHOD 03/30/2024 5:52 PM [facility] Coronavirus HKU1 Not Detected Not Detected LAB MICROBIOLOGY METHOD 03/30/2024 5:52 PM [facility] Coronavirus OC43 Not Detected Not Detected LAB MICROBIOLOGY METHOD 03/30/2024 5:52 PM [facility] Coronavirus NL63 Not Detected Not Detected LAB MICROBIOLOGY METHOD 03/30/2024 5:52 PM [facility] Parainfluenza Virus 1 Not Detected Not Detected LAB MICROBIOLOGY METHOD 03/30/2024 5:52 PM [facility] Parainfluenza Virus 2 Not Detected Not Detected LAB MICROBIOLOGY METHOD 03/30/2024 5:52 PM [facility] Parainfluenza Virus 3 Not Detected Not Detected LAB MICROBIOLOGY METHOD 03/30/2024 5:52 PM [facility] Parainfluenza Virus 4 Detected(A ) Not Detected LAB MICROBIOLOGY METHOD 03/30/2024 5:52 PM [facility] RSV PCR Not Detected Not Detected LAB MICROBIOLOGY METHOD 03/30/2024 5:52 PM [facility] Human Metapneumovirus A and B Not Detected Not Detected LAB MICROBIOLOGY METHOD 03/30/2024 5:52 PM [facility] Rhinovirus/Entero virus Not Detected Not Detected LAB MICROBIOLOGY METHOD 03/30/2024 5:52 PM [facility] Bordetella pertussis Not Detected Not Detected LAB MICROBIOLOGY METHOD 03/30/2024 5:52 PM [facility] Bordetella parapertussis Not Detected Not Detected LAB MICROBIOLOGY METHOD 03/30/2024 5:52 PM [facility] Mycoplasma pneumo by PCR Not Detected Not Detected LAB MICROBIOLOGY METHOD 03/30/2024 5:52 PM EST [facility] Chlamydia pneumoniae Not Detected Not Detected LAB MICROBIOLOGY METHOD 03/30/2024 5:52 PM EST [facility] SARS COV-2 Not Detected Not Detected LAB MICROBIOLOGY METHOD 03/30/2024 5:52 PM [facility] Swab 03/30/2024 10:1 9 AM EST 03/30/2024 4:31 PM EST [facility] - 03/30/2024 5:52 PM EST Testing was performed using the [employer] Respiratory Pathogen PCR Assay. All results must [...] that are below the limit of detection. Conchis Sánchez TRANSPORTATION DEPARTMENT HEAD LAB MICROBIOLOGY - GENERAL ORDERABLES Final Result [facility] [address] [place] [address], documented in this encounter Visit Diagnoses Diagnosis Acute cough documented in this encounter Additional Health Concerns Infection Onset Date Last Indicated Resolved Time Parainfluenza Virus 03/30/2024 03/30/2024 documented as of this encounter Care Teams Linux Vmware Administrator Relationship Specialty Start Date End Date Demetrius Castillo MD [address] [place] [address] PCP - General Internal Medicine 06/22/24 documented as of this encounter
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
== END 2025-02-08 08:13 | disposition home or self-care (01) ==
LOC: HO.US 08:12
PROVIDERS: PCP Internal Medicine; Visit Provider Urology
DX: Z13.89 Encounter for screening for other disorder (principal)

== ENCOUNTER 2025-02-11 10:19 | Outpatient (REF) | payer OTHER, SELFPAY ==
--- OUTSIDE RECORDS SUMMARY | 2024-09-15 11:20 | XMS_ITS ---
Author Organization [facility] Address [address] [place] [phone] Care Team Providers Care Program Director Scouting Name Role Phone Demetrius Castillo Primary Care Provider REASON FOR VISIT Phone; follow up Medications Medication SIG (Take, Route, Frequency, Duration) Notes Start Date End Date Status KETOTIFEN OPHTHALMIC 0.025% 1 gtt in each affected eye every 8 hours for 10 day(s) 05/11/2023 Not-Taking CLOTRIMAZOLE TOPICAL 1% 1 singh applied topically 2 times a day for 14 days apply for 14 days, then omit for 14 days and then restart 11/02/2023 Not-Taking AZELASTINE NASAL 137 mcg/inh 2 spray(s) intranasally 2 times a day for 10 days Not-Taking Social History Sex Assigned At : Social History Observation Description Sex Assigned At Male Encounters Encounter Location Date Provider Diagnosis [facility] [address] [place] [address] [facility] [place] [phone] 09/15/2024 Demetrius Castillo Plan Of Treatment Next Appt Details Provider Name:Adryan [facility], 02/16/2025 10:30:00 AM, [address] [place] [address], [phone], Provider Name:Demetrius Castillo, 08/03/2025 02:20:00 PM, [address] [place] [address], [phone], Progress Notes * Steven QUINTEROOB:1960 ( 64 yo M)Acc No.[id number]:09/15/2024 Progress Notes Patient: Chance MORSE Provider: Nayla Castillo MD :1960 A ge:64 Y S ex:Male Date:09/15/2024 Address:[address] [place] [address], [place] [address] Subjective: * Chief Complaints: * 1 . Phone; follow up. * Medical History: * Medications: N ot-Taking/PRN CLOTRIMAZOLE TOPICAL 1% cream 1 singh applied topically 2 times a day apply for 14 days, then omit for 14 days and then restart, Not-Taking/PRN KETOTIFEN OPHTHALMIC 0.025% solution 1 gtt in each affected eye every 8 hours , Not- Taking/PRN AZELASTINE NASAL 137 mcg/inh spray 2 spray(s) intranasally 2 times a day Objective: * Vitals: Assessment: Plan: * Treatment: * Images: Billing Information: * Visit Code: * Procedure Codes: Care Plan Details* * Electronic signature of Andgladys Castillo MD on 02/11/2025 at 12:33 PM EST Sign off status: Pending * Provider: Nayla Castillo MD Date: 0 09/15/2024 Generated for Harriet howell/Ulises/eTraizasmitting on: 1 04/13/2024 12:33 PM EST
--- OUTSIDE RECORDS SUMMARY | 2024-12-12 16:00 | XMS_ITS ---
Author Organization [facility] Address [address] [place] [phone] Care Team Providers Care Head Of Quality Name Role Phone Jonathan Demetrius Primary Care Provider Migration, Provider Unavailable Unavailable REASON FOR VISIT Multum To Medispan Conversion Encounter Medications Medication SIG (Take, Route, Frequency, Duration) Notes Start Date End Date Status Clotrimazole 1 % 1 singh applied topically 2 times a day for 14 days 11/02/2023 Not-Taking Ketotifen Fumarate 0.025% 1 GTT IN EACH AFFECTED EYE EVERY 8 HOURS for 10 DAY(S) *Please review and pick correct strength-formulat ion from Make My plate options. If intended option is not shown, discontinue and re-order from Quick Search* 05/11/2023 Not-Taking Finasteride 5 MG 1 tab(s) orally once a day Active Azelastine HCl 137 MCG/SPRAY 2 spray(s) intranasally 2 times a day for 10 days Not-Taking Social History Sex Assigned At : Social History Observation Description Sex Assigned At Male Encounters Encounter Location Date Provider Diagnosis [address] [phone] 12/12/2024 Provider Migration Plan Of Treatment Next Appt Details Provider Name:Adryan [facility], 02/16/2025 10:30:00 AM, [address] [place] [address], [phone], Provider Name:Demetrius Castillo, 08/03/2025 02:20:00 PM, [address] [place] [address], [phone], Progress Notes * Steven QUINTEROOB:1960 ( 64 yo M)Acc No.[id number]:12/12/2024 Patient: Chance MORSE Provider: :1960 A ge:64 Y S ex:Male Date:12/12/2024 Address:[address] [place] [address] Pcp:Demetrius Castillo Subjective: * Chief Complaints: * 1 . Multum To Medispan Conversion Encounter. * Medical History: * Medications: T aking Finasteride 5 MG Tablet 1 tab(s) orally once a day , Not-Taking/PRN Clotrimazole 1 % Cream 1 singh applied topically 2 times a day , Not-Taking/PRN Ketotifen Fumarate 0.025% SOLUTION 1 GTT IN EACH AFFECTED EYE EVERY 8 HOURS , Notes to Pharmacist: *Please review and pick correct [facility]formulation [facility] options. If intended option is not shown, discontinue and re-order from Quick Search*, Not-Taking/PRN Azelastine HCl 137 MCG/SPRAY Solution 2 spray(s) intranasally 2 times a day Objective: * Vitals: Assessment: Plan: * Treatment: * Images: Billing Information: * Visit Code: * Procedure Codes: * Electronic signature of Prov ider Migration on 02/11/2025 at 12:33 PM EST Sign off status: Pending * Provider: Date: 12/12/2024 Generated for Harriet howell/Ulises/Lyubov on: 04/13/2024 12:33 PM EST
--- OUTSIDE RECORDS SUMMARY | 2025-01-15 09:30 | XMS_ITS ---
Author Organization [facility] Address [address] [place] [phone] Care Team Providers Care Digital Account Supervisor Name Role Phone Demetrius Castillo Primary Care Provider [facility] Unavailable [phone] REASON FOR VISIT Office; Received a bill from a office Social History Sex Assigned At : Social History Observation Description Sex Assigned At Male Encounters Encounter Location Date Provider Diagnosis [address] [address] 01/15/2025 [facility] Plan Of Treatment Next Appt Details Provider Name:[facility], 02/16/2025 10:30:00 AM, [address] [place] [address], [phone], Provider Name:Demetrius Castillo, 08/03/2025 02:20:00 PM, [address] [place] [address], [phone], Progress Notes * Steven QUINTEROOB:1960 ( 64 yo M)Acc No.[id number]:01/15/2025 Patient: Amelia Chance LARIOS Provider: Jermaine [facility] :1960 A ge:64 Y S ex:Male Date:01/15/2025 Address:[address] [place] [address] Pcp:Demetrius Castillo Subjective: * Chief Complaints: * 1 . Office; Received a bill from a office. * Medical History: Objective: Assessment: Plan: * Images: Billing Information: Care Plan Details* * Electronic signature of [facility] on 02/11/2025 at 12:33 PM EST Sign off status: Pending * Provider: Jermaine [facility] Date: 1 Generated for Harriet howell/Ulises/Lyubov on: 1 04/13/2024 12:33 PM EST
--- NOTE | ~2025-02-11 | US_ITS ---
EXAMINATION: US PELVIS LIMITED (BLADDER) CLINICAL INFORMATION: R 97.20. Elevated PSA.. COMPARISON: None available. TECHNIQUE: Real-time imaging of the bladder. FINDINGS: BLADDER: Fluid-filled without gross intraluminal abnormality. Bilateral ureteral jets are demonstrated. Prevoid bladder volume is 326 mL. Postvoid bladder volume is 7.0 mL. Prostate gland measures 4 x 4 x 5 cm and volume: 41 cc. US/US bladder IMPRESSION: 7.0 cc of residual urine in a post void image. Prostate gland volume: 41 cc.. Electronically signed by: Morris Bucio MD 02/11/2025 12:20 PM [facility]
--- OUTSIDE RECORDS SUMMARY | 2025-02-11 12:34 | XMS_ITS | Encounter Summary ---
Author Organization [facility] Address [address] [place] [address] Care Team Providers Care Slab Miller Operator Name Role Phone Demetrius Castillo MD Primary Care Provider [phone] Encounter Details Date Type Department Care Team (Late st Contact Info) Description 03/30/2024 Lab Requisition [facility] - Main Lab [address] [facility] [place] [address] Conchis Sánchez, HUY [address] [place] [address] Acute cough Social History Tobacco Use Types [...] LAB MICROBIOLOGY METHOD 03/30/2024 5:52 PM EST [facility] Influenza A PCR Not Detected Not Detected LAB MICROBIOLOGY METHOD 03/30/2024 5:52 PM EST [facility] Influenza B PCR Not Detected Not Detected LAB MICROBIOLOGY METHOD 03/30/2024 5:52 PM [facility] Coronavirus 229E Not Detected Not Detected LAB MICROBIOLOGY METHOD 03/30/2024 5:52 PM [facility] Coronavirus HKU1 Not Detected Not Detected LAB MICROBIOLOGY METHOD 03/30/2024 5:52 PM [facility] Coronavirus OC43 Not Detected Not Detected LAB MICROBIOLOGY METHOD 03/30/2024 5:52 PM [facility] Coronavirus NL63 Not Detected Not Detected LAB MICROBIOLOGY METHOD 03/30/2024 5:52 PM [facility] Parainfluenza Virus 1 Not Detected Not Detected LAB MICROBIOLOGY METHOD 03/30/2024 5:52 PM [facility] Parainfluenza Virus 2 Not Detected Not Detected LAB MICROBIOLOGY METHOD 03/30/2024 5:52 PM [facility] Parainfluenza Virus 3 Not Detected Not Detected LAB MICROBIOLOGY METHOD 03/30/2024 5:52 PM [facility] Parainfluenza Virus 4 Detected(A ) Not Detected LAB MICROBIOLOGY METHOD 03/30/2024 5:52 PM [facility] RSV PCR Not Detected Not Detected LAB MICROBIOLOGY METHOD 03/30/2024 5:52 PM [facility] Human Metapneumovirus A and B Not Detected Not Detected LAB MICROBIOLOGY METHOD 03/30/2024 5:52 PM [facility] Rhinovirus/Entero virus Not Detected Not Detected LAB MICROBIOLOGY METHOD 03/30/2024 5:52 PM [facility] Bordetella pertussis Not Detected Not Detected LAB MICROBIOLOGY METHOD 03/30/2024 5:52 PM [facility] Bordetella parapertussis Not Detected Not Detected LAB MICROBIOLOGY METHOD 03/30/2024 5:52 PM [facility] Mycoplasma pneumo by PCR Not Detected Not Detected LAB MICROBIOLOGY METHOD 03/30/2024 5:52 PM EST [facility] Chlamydia pneumoniae Not Detected Not Detected LAB MICROBIOLOGY METHOD 03/30/2024 5:52 PM EST [facility] SARS COV-2 Not Detected Not Detected LAB MICROBIOLOGY METHOD 03/30/2024 5:52 PM [facility] Swab 03/30/2024 10:1 9 AM EST 03/30/2024 4:31 PM EST [facility] - 03/30/2024 5:52 PM EST Testing was performed using the [employer] Respiratory Pathogen PCR Assay. All results must [...] below the limit of detection. Conchis Sánchez TRANSFER AND LINE UP WORKER LAB MICROBIOLOGY - GENERAL ORDERABLES Final Result [facility] [address] [place] [address], documented in this encounter Visit Diagnoses Diagnosis Acute cough documented in this encounter Additional Health Concerns Infection Onset Date Last Indicated Resolved Time Parainfluenza Virus 03/30/2024 03/30/2024 documented as of this encounter Care Teams Slab Miller Operator Relationship Specialty Start Date End Date Demetrius Castillo MD [address] [place] [address] PCP - General Internal Medicine 06/22/24 documented as of this encounter
--- OUTSIDE RECORDS SUMMARY | 2025-02-11 12:34 | XMS_ITS | Data Portability ---
Author Organization [place] [facility], Allergy Address [address] [address] Care Team Providers Care Hiv Prevention Specialist Name Role Phone [facility] Primary Car e Provider Assessment Encounter Date Assessment Date Assessment LastModified by Organization Details LastModified Time 02/19/2024 02/19/2024 The left ear [email or web address] Not available 1 04/20/2023 15:56:01 Plan of [...] Recorded Time Foreign body in left ear [id number] 0 Active 2023 CHERI REILLY MD [address], [address], [place] - [facility] 4 15:56:09 Problem Notes None recorded. Procedures Surgical History Date Name Laterality Status Provider Name and Address Organization Details Recorded Time Removal of foreign body from ear canal completed CHERI REILLY MD [address] [place] [address], [phone], [facility] 02/19/2024 15:55:56 Imaging Results None recorded. [...] Social History Question Answer Notes LastModified by [employer] Details LastModified Time Tobacco Smoking Status Current Every Day Smoker Bonnie oneill [place] - [facility] 02/19/2024 15:39:18 Which Illicit Or Recreational Drugs Have You Used? Marijuana [email or web address] Information not available 02/19/2024 Sex: Unknown Functional Status Question Answer Note LastModified by Organizat ion Details LastModified Time Do you use any illicit or recreational drugs? Yes [email or web address] Information not available 02/19/2024 Mental Status None recorded. Family History Nothing Reported. Medical History No medical history recorded. Past Encounters Encounter ID Performer Location Encounter Start Date Encounter Closed Date Diagnosis/Indication Diagnosis SNOMED-CT Code Diagnosis ICD10 Code Diagnosis IMO Codes Diagnosis Note [id number] CHERI REILLY MD [facility] [address] [address] 02/19/2024 15:24:52 02/19/2024 16:01:14 Foreign body in left ear [id number] T16.2XXA Left ear was occluded by a [...] Vo Member ID Guarantor Name 02/19/2024 1 [facility] (MEDICARE REPLACEMENT/A DVANTAGE - HMO) [facility] Chance Valles [id number] Chance Valles 02/19/2024 2 [place]: [facility] Chance Valles [id number] Chance Valles Notes Date Note Type Note [...] or discharge. Today's visit carried out using boating safety officer. Patient uses Q-tips on a regular basis. CHERI REILLY MD [address] [place] [address], [phone], [facility] - [facility] 02/19/2024 15:57:26
--- OUTSIDE RECORDS SUMMARY | 2025-02-11 12:34 | XMS_ITS | Patient Health Record ---
Author Organization [facility] Address [address] [place] [address] Care Team Providers Care Jewelry Designer Name Role Phone Demetrius Castillo Primary Care Provider Danielle Field Unavailable [phone] HindsJoaquínJosie Unavailable [phone] [facility] Unavailable [phone] Conchis Sánchez Unavailable [phone] Migration, Provider Unavailable Unavailable Allergies No Known [...] Performing Lab: Notes/Report: Negative RESPIRATORY VIRUS PANEL [facility] STUDY Reviewed date:04/03/2024 11:40:26 AM Interpretation:Parainfluenza Performing Lab: Notes/Report: Testing was performed using the Lynk Respiratory Pathogen PCR Assay. All results must [...] ENT assoc. They will call him [facility] Referral Organization [facility] Referring Provider First Name Demetrius Referring Provider Last Name Jonathan Referring Provider Speciality Internal M edicine Referred Provider [facility] Referred Provider Specialty Otology, Lar yngology, Rhinology General Notes Silvia Zaldivar 11:39:52 AM >Notes faxed to [phone] Katelyn 02/19/2024 04:07:04 PM > pt seen today note obtained and put into providers folder to be reviewed Referral Priority Routine Referral Appointment Date 02/19/2024 Reason [facility] y, [address] [facility] [address] P: [phone] F: [phone] right inguinal hernia - grapefruit size Diagnosis 1 Unilateral inguinal hernia, without obstruction or gangrene, not specified as recurrent (K40.90) Referral Organization [facility] Referring Provider First Name Demetrius Referring Provider Last Name Jonathan Referring Provider Speciality Internal M edicine Referred Provider Specialty Surgery General Notes Lucrecia Blackman 03:39:49 PM > Faxed to general surgery, Lucrecia Blackman 07/28/2024 10:13:34 AM > pt. attended, notes to scan Referral Priority Routine Referral Appointment Date 06/25/2024 Reason [facility], [address], IZABEL Carter P: [phone] F: [phone] Abnormal prostate MRI in gentleman with gradually increasing PSA See note Referral Organization [facility] Referring Provider First Name Demetrius Referring Provider Last Name Jonathan Referring Provider Speciality Internal edicine Referred Organization [facility] Referred Provider [facility] er, Urology Services Referred Address [address] [facility],[place],[address],[place] Referred Provider Specialty Urology General Notes Lucrecia Blackman 01/2025 08:43:34 AM > Faxed to [facility] Monica 09/10/2024 03:51:40 PM >Note from [facility]- Unable to schedule as he has been d/c'd from practice.Jonathan Andrew 09/10/2024 09:59:50 PM >any other inplan otpions?, Lucrecia Blackman 09/16/2024 08:48:15 AM > faxed new referral option to [facility], Lucrecia Blackman 10/27/2024 08:32:30 AM [...] him with community dental resources? Referral Organization [facility] Referring Provider First Name Demetrius Referring [...] review and pick correct strength-formulat ion from [employer] options. If intended option is not shown, discontinue and re-order from Quick Search* 05/11/2023 Not-Taking Azelastine HCl 137 MCG/SPRAY 2 spray(s) intranasally 2 times a day for 10 days Not-Taking Clotrimazole 1 % 1 singh applied topically 2 times a day for 14 days 11/02/2023 Not-Taking Immunizations Vaccine Route Administration Date Status Comme nts Pfizer-V3 Systems Covid-19 Vaccine Administration - First Dose (Single Dose 30MCG/0.3ML 1ST) Unknown 12/03/2020 Administered Pfizer-Biontech Covid-19 Vaccine Administration-Secon d Dose (Single Dose 30MCG/0.3ML 2ND) Unknown 12/24/2020 Administered Tdap IM Intramuscular 10/03/2021 Administered ND 49 [id number] PPSV 23 IM Intramuscular 10/03/2021 Administered NDC 00 [id number] Influenza IM Intramuscular 02/16/2022 Administered Shingrix (Zoster) Unknown 05/10/2023 Administered Influenza IM Intramuscular 03/06/2024 Administered [facility] [id number] Social History Tobacco Use: Social History Observation [...] Status W/U Status Risk Notes Problem Overweight (932344134) Overweight (E66.3) Active confirmed Problem Mild recurrent major depression (11785963) Major depressive disorder, recurrent, mild (F33.0) Active confirmed Problem Recurrent major depression (17495721) Major depressive disorder, recurrent, in remission, unspecified (F33.40) Active confirmed Problem Essential hypertension (72351821) Essential (primary) hypertension (I10) Active confirmed Problem 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 (4879388046564298 ) 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 (K02.51) Active confirmed Problem Inguinal hernia (636848874) Unilateral inguinal hernia, without obstruction or gangrene, not specified as recurrent (K40.90) Active confirmed Problem Pain of left hip joint (finding) (559603324961078) Pain in left hip (M25.552) Active confirmed Problem Degeneration of lumbar intervertebral disc (48363778) Other intervertebral disc degeneration, lumbar region (M51.36) Active confirmed Problem Low back pain (863452497) Low back pain (M54.5) Active confirmed Problem Vaccine refused by patient (286572589066) Immunization not carried out because of patient decision for unspecified reason (Z28.20) Active confirmed Problem Tobacco use (801375997) Tobacco use (Z72.0) Active confirmed Problem Elevated PSA (019836108) Elevated prostate specific antigen [PSA] (R97.20) Active confirmed Problem Body mass index 30.00 to 34.99 (720971908509322) Body mass index [BMI] 32.0-32.9, adult (Z68.32) Active confirmed Problem Sheltered homelessness (511477435200520) Sheltered homelessness (Z59.01) Active confirmed Problem BMI 25-29 - overweight (809754145) Body mass index (BMI) 29.0-29.9, adult (Z68.29) Inactive confirmed Problem Body mass index 30+ - obesity (751018457) Body mass index (BMI) 30.0-30.9, adult (Z68.30) Inactive confirmed Problem Body mass index 30+ - obesity (525602701) Body mass index [BMI] 30.0-30.9, adult (Z68.30) Inactive confirmed Vital Signs Temperature 97.2 degrees Fahrenheit 02/02/2025 Blood pressure diastolic 86 02/02/2025 Oximetry 100 02/02/2025 Height 68 in 02/02/2025 Blood pressure systolic 139 02/02/2025 Weight 198.6 lbs 02/02/2025 BMI 30.19 kg/m2 02/02/2025 Encounters Encounter Location Date Provider Diagnosis [address] [address] 12/12/2024 Provider Migration [address] [address] 01/15/[address] [address] 02/14/2024 Demetrius Castillo Encounter for screening for COVID-19 Z11.52 and 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 D23.[address] [address] 03/06/2024 Demetrius Castillo Low back pain M54.5 ; Other intervertebral disc degeneration, lumbar region M51.36 ; Encounter for screening for COVID-19 Z11.52 ; Encounter for immunization Z23 ; Tinea pedis B35.3 ; Tobacco use Z72.0 ; Major depressive disorder, recurrent, in remission, unspecified F33.40 ; Elevated prostate specific antigen [PSA] R97.20 and Essential (primary) hypertension I10 [facility] [address] [address] 03/18/2024 Danielleyoon Field [address] [address] 03/30/2024 Eddieliza Casionan Acute cough R05.1 and Essential (primary) hypertension I10 [address] [address] 04/21/2024 Demetrius Castillo Encounter for screening for COVID-19 Z11.52 ; Unilateral inguinal hernia, without obstruction or gangrene, not specified as recurrent K40.90 and Tobacco use Z72.[address] [address] 05/08/2024 Demetrius Castillo Encounter for screening for COVID-19 Z11.52 ; Essential (primary) hypertension I10 ; Overweight E66.3 ; Elevated prostate specific antigen [PSA] R97.20 ; Major depressive disorder, recurrent, in remission, unspecified F33.40 ; Body mass index [BMI] 32.0-32.9, adult Z68.32 ; Unilateral inguinal hernia, without obstruction or gangrene, not specified as recurrent K40.90 and Acute nasopharyngitis [common cold] J00 [address] [address] 07/28/2024 Demetrius Castillo Encounter for screening for COVID-19 Z11.52 ; Unilateral inguinal hernia, without obstruction or gangrene, not specified as recurrent K40.90 ; Elevated prostate specific antigen [PSA] R97.20 ; Overweight E66.3 ; Body mass index [BMI] 32.0-32.9, adult Z68.32 ; Essential (primary) hypertension I10 ; Major depressive disorder, recurrent, mild F33.0 ; Tobacco use Z72.0 and Low back pain M54.[address] [address] 08/20/2024 Josie Hinds [facility] [address] [place] [address] [facility] [place] [phone] 2024 Demetrius Castillo Elevated prostate specific antigen [PSA] R97.[address] [address] 10/27/2024 Demetrius Castillo Encounter for screening for COVID-19 Z11.52 ; Elevated prostate specific antigen [PSA] R97.20 ; Essential (primary) hypertension I10 ; Overweight E66.3 and Tobacco use Z72.[address] [address] 02/02/2025 Demetrius Castillo Encounter for screening for COVID-19 Z11.52 ; Low back pain M54.5 ; Encounter for screening for malignant neoplasm of colon Z12.11 ; 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 K02.51 ; Major depressive disorder, recurrent, mild F33.0 ; Sheltered homelessness Z59.01 ; Elevated prostate specific antigen [PSA] R97.20 ; Essential (primary) hypertension I10 and Tobacco use Z72.0 [facility] [address] [place] [address] 06/16/2024 Danielle Field [address] [address] 02/20/2024 Demetrius Castillo [facility] [address] [place] [phone] 04/06/2024 Demetrius Castillo Acute cough R05.1 [facility] [address] [place] [phone] 04/17/2024 Demetrius Castillo [facility] [address] [place] [phone] 05/13/2024 Demetrius Castillo [address] [address] 06/25/2024 Demetrius Castillo [address] [address] 07/29/2024 Demetrius Castillo [address] [address] 08/20/2024 Demetrius Castillo [address] [address] 09/08/2024 Demetrius Castillo [address] [address] 09/15/2024 Demetrius Castillo [address] [address] 12/16/2024 Demetrius Castillo Assessments Encounter Date Diagnosis [...] to do all of these bid at [facility] 03/06/2024 Low back pain (ICD-10 - [...] - R97.20) I reviewed the MRI at [facility]. He has level 3 change in one [...] Details Provider Name:Adryan CALLAHAN, 02/16/2025 10:30:00 AM, [address] [place] [address], [phone], Provider Name:Demetrius Castillo, 08/03/2025 02:20:00 PM, [address] [place] [address], [phone], Insurance Providers Payer Name Payer Address Payer Phone Subscriber Number Group Number Insured Name Patient Relationship to Insured Coverage Start Date [facility]age End Date [facility] [address] [place] [id number] Chance Valles Self - patient is the insured 4 [place] Standard [address] [place] [address] [id number] Chance Valles Self - patient is the insured 1 [place] [employer] [address] [place] [address] [id number] Chance Valles Self - patient is the [...]
--- OUTSIDE RECORDS SUMMARY | 2025-02-11 12:34 | XMS_ITS | Clinical Summary ---
Author Organization [address] Address [address] [place] [address] Phone Care Team Providers Care Diamond Sizer And Grader Name Role Phone Demetrius Castillo MD Primary Care Provider [phone] Allergies No known active allergies Medications oxyCODONE [...] this topic Medical Devices Implanted Type Area Bereavement Counselor Device Identifier Shelf Expiration Date Model / Serial / Lot Mesh 3dmax Lght Lg 4.1x6.2 R 4.1x6.2in - Sna - [id number] Implanted:Qty: 1 on 06/25/2024 by Robbie Nunez MD at [facility] Surgical Mesh Sling Implants Right: Inguinal CR BARD - DAVOL DIV [id number] 12/27/2028 [id number] / NA / [id number] Additional Health Concerns Infection Onset Date Last [...] currently active code status orders. Care Teams Diamond Sizer And Grader Relationship Specialty Start Date End Date Demetrius Castillo MD [address] Camacho [place] PCP - General Internal Medicine 06/22/24
--- OUTSIDE RECORDS SUMMARY | 2025-02-11 12:34 | XMS_ITS | Encounter Summary ---
Author Organization [facility] Address [address] [place] [address] Care Team Providers Care Patrol Police Sergeant Name Role Phone Demetrius Castillo MD Primary Care Provider [phone] Encounter Details Date Type Department Care Team (Late st Contact Info) Description 05/08/[address] [facility] - [facility] Lab [address] [facility] [place] [address] Demetrius Castillo MD [address] [place] [address] Elevated prostate specific antigen (PSA) Social History [...] LAB CHEMISTRY METHOD 05/08/2024 5:13 PM EST [facility] Blood Venous blood specimen / Unknown 05/08/2024 10:32 AM EST 05/08/2024 4:46 PM EST Narrative [facility] ([facility] - 05/08/2024 5:13 PM EST The Siemens Advia Centaur Chemiluminescent Immunoassay is used. Results obtained with different assay methods or kits cannot be used interchangeably. Results cannot be interpreted as absolute evidence of the presence or absence of malignant disease. us Demetrius Castillo MD LAB BLOOD ORDERABLES Final Re sult [facility] [address] [place] [address], documented in this encounter Visit Diagnoses Diagnosis Elevated prostate specific antigen (PSA) documented in this encounter Additional Health Concerns Infection Onset Date Last Indicated Resolved Time Parainfluenza Virus 03/30/2024 03/30/2024 documented as of this encounter Care Teams Patrol Police Sergeant Relationship Specialty Start Date End Date Demetrius Castillo MD [address] [place] [address] PCP - General Internal Medicine 06/22/24 documented as of this encounter
== END 2025-02-11 10:20 | disposition home or self-care (01) ==
LOC: HO.US 10:19
PROVIDERS: PCP Internal Medicine; Visit Provider Urology
DX: R97.20 Elevated prostate specific antigen [PSA] (principal)
CPT/HCPCS: 76857

== ENCOUNTER → 2025-02-11 10:21 | Outpatient (BNV) | payer OTHER, SELFPAY | PROVIDERS: PCP Internal Medicine; Visit Provider Radiology Diagnostic Radiology | DX: R97.20 Elevated prostate specific antigen [PSA] (principal); R39.198 Other difficulties with micturition | CPT/HCPCS: 76857 ==

== ENCOUNTER 2025-02-13 08:13 | Outpatient (REF) | payer OTHER, SELFPAY ==
--- OUTSIDE RECORDS SUMMARY | 2025-02-13 08:17 | XMS_ITS | Data Portability ---
Author Organization [place] [facility], [facility] Address [address] [address] Care Team Providers Care Kst Operator Name Role Phone [facility] Primary Car e Provider Assessment Encounter Date Assessment Date Assessment LastModified by Organization Details LastModified Time 02/19/2024 02/19/2024 The left ear [id number] Not available 1 04/20/2023 15:56:01 Plan of [...] Recorded Time Foreign body in left ear [id number] 0 Active 2023 CHERI REILLY MD [address], [address], [place] [facility] 4 15:56:09 Problem Notes None recorded. Procedures Surgical History Date Name Laterality Status Provider Name and Address Organization Details Recorded Time Removal of foreign body from ear canal completed CHERI REILLY MD [address] [place] [address], [phone], [facility] 02/19/2024 15:55:56 Imaging Results None recorded. [...] Social History Question Answer Notes LastModified by [employer] Details LastModified Time Tobacco Smoking Status Current Every Day Smoker Bonnie oneill [place] - [facility] 02/19/2024 15:39:18 Which Illicit Or Recreational Drugs Have You Used? Marijuana [email or web address] Information not available 02/19/2024 Sex: Unknown Functional Status Question Answer Note LastModified by Organizat ion Details LastModified Time Do you use any illicit or recreational drugs? Yes [email or web address] Information not available 02/19/2024 Mental Status None recorded. Family History Nothing Reported. Medical History No medical history recorded. Past Encounters Encounter ID Performer Location Encounter Start Date Encounter Closed Date Diagnosis/Indication Diagnosis SNOMED-CT Code Diagnosis ICD10 Code Diagnosis IMO Codes Diagnosis Note [id number] CHERI REILLY MD [facility] [address] [address] 02/19/2024 15:24:52 02/19/2024 16:01:14 Foreign body in left ear [id number] T16.2XXA Left ear was occluded by a [...] Vo Member ID Guarantor Name 02/19/2024 1 [facility] (MEDICARE REPLACEMENT/A DVANTAGE - HMO) [facility] Chance Valles [id number] Chance Valles 02/19/2024 2 [place] [facility] Chance Valles [id number] Chance Valles Notes Date Note Type Note [...] or discharge. Today's visit carried out using interpreter. Patient uses Q-tips on a regular basis. CHERI REILLY MD [address] [place] [address], [phone], [facility] - [facility] 02/19/2024 15:57:26
[2025-02-13 10:05] LABS: PSA,Total (Free>4and<10) 6.34 ng/mL (0.00-4.00)
[2025-02-18 12:38] LABS: Free Prostate Spec Ag 0.6 ng/mL; Percent Free Prostate Spec Ag 10 % (calc) (>25)
== END 2025-02-13 08:14 | disposition home or self-care (01) ==
LOC: HO.LAB 08:13
PROVIDERS: PCP Internal Medicine; Visit Provider Urology
DX: R97.20 Elevated prostate specific antigen [PSA] (principal); Z12.5 Encounter for screening for malignant neoplasm of prostate
CPT/HCPCS: 36415; 84153; 84154